=== PATIENT | male | born 1960 | race Two or more races ===

== ENCOUNTER 2018-05-04 18:07 | Inpatient (IN) | payer OTHER ==
[~2018-05-04] VITALS: Ht 175.3 cm; Wt 123.0 kg
[2018-05-04] MEDS ORDERED: acetaminophen 325mg tablet PO ONE (18:30)
[2018-05-04 19:19] LABS: BASOPHILS # (AUTO) 0.1 X10'3 (0-0.2); BASOPHILS % (AUTO) 0.4 % (0-1); EOSINOPHILS # (AUTO) 0.1 X10'3 (0-0.9); EOSINOPHILS % (AUTO) 0.9 % (0-6); HEMATOCRIT 41.6 % (42.0-52.0); HEMOGLOBIN 14.1 g/dl (14.0-17.9); LYMPHOCYTES # (AUTO) 1.4 X10'3 (1.1-4.8); LYMPHOCYTES % (AUTO) 11.4 % (21-51); MEAN CORPUSCULAR HEMOGLOBIN 30.3 PG (27.0-31.0); MEAN CORPUSCULAR HGB CONC 33.8 % (33.0-36.5); MEAN CORPUSCULAR VOLUME 89.4 FL (78-98); MONOCYTES # (AUTO) 0.8 X10'3 (0-0.9); MONOCYTES % (AUTO) 6.8 % (2-12); NEUTROPHILS # (AUTO) 9.6 X10'3 (1.8-7.7); NEUTROPHILS % (AUTO) 80.5 % (42-75); PLATELET COUNT 162 X10'3 (140-440); RED BLOOD COUNT 4.65 X10'6 (4.70-6.10); RED CELL DISTRIBUTION WIDTH 13.4 % (11.5-14.5)
[2018-05-04 19:33] LABS: PARTIAL THROMBOPLASTIN TIME 26 SECONDS (22-32); PROTHROMBIN TIME 10.5 SECONDS (9.0-12.0)
[2018-05-04 19:36] LABS: ALANINE AMINOTRANSFERASE 57 U/L (12-78); ALBUMIN 2.9 G/DL (3.4-5.0); ALBUMIN/GLOBULIN RATIO 0.5 (1.1-1.5); ALKALINE PHOSPHATASE 120 IU/L (46-116); ANION GAP 9 (8-16); ASPARTATE AMINO TRANSFERASE 42 U/L (10-37); BILIRUBIN,TOTAL 0.6 MG/DL (0.1-1.0); BLOOD UREA NITROGEN 15 MG/DL (7-18); CALCIUM 8.5 MG/DL (8.5-10.1); CHLORIDE 102 MMOL/L (99-107); CREATININE 1.07 MG/DL (0.60-1.10); GLUCOSE 265 MG/DL (70-104); POTASSIUM 3.7 MMOL/L (3.5-5.1); SODIUM 137 MMOL/L (135-145); TOTAL CARBON DIOXIDE 25.6 MMOL/L (24-32); TOTAL PROTEIN 8.3 G/DL (6.4-8.2); eGFR 71 ML/MIN
[2018-05-04] MEDS ORDERED: DOCU-20 PO (20:20)
[2018-05-04] MEDS ORDERED: ASPI81TA52 PO (20:20)
[2018-05-04] MEDS ORDERED: METF500T PO (20:20)
[2018-05-04] MEDS ORDERED: HUM7525 SQ (20:20)
[2018-05-04] MEDS ORDERED: SIMV20TA5 PO (20:20)
[2018-05-04] MEDS ORDERED: MULT-38 PO (20:20)
[2018-05-04] MEDS ORDERED: LISI-600 PO (20:20)
[2018-05-04] MEDS ORDERED: INSU100V9 SQ (20:20)
[2018-05-04 20:27] LABS: CLARITY,URINE CLEAR (Clear); COLOR,URINE YELLOW (Yellow); GLUCOSE, URINE 500 mg/dl (Neg); KETONES,URINE TRACE mg/dl (Neg); LEUKOCYTE ESTERASE ,URINE NEGATIVE (Neg); NITRITES, URINE NEGATIVE (Neg); OCCULT BLOOD,URINE LARGE (Neg); PROTEIN,URINE 30 mg/dl (Neg)
[2018-05-04 20:45] LABS: UA COLLECTION TYPE CLN CATCH MIDSTREAM
[2018-05-04 20:49] LABS: BACTERIA,URINE FEW /HPF (Neg); MUCUS STRANDS MODERATE /LPF (Neg); RBC,URINE 50-100 /HPF (0-2); SQUAMOUS EPITHELIAL CELL,UR FEW /LPF (FEW); WBC,URINE 0-4 /HPF (0-4)
[2018-05-04] MEDS ORDERED: TETanus/Pertussis (Acell)/Diphther VAC/PF (Tdap-Adult) 0.5ml syringe IM ONE (23:50)
[2018-05-04] MEDS ORDERED: clindamycin 600mg/D5W 50ml 50 ML IV ONE (23:50)
[2018-05-05] MEDS ORDERED: metoclopramide 5 mg/ml inj IV PRN (00:50)
[2018-05-05] MEDS ORDERED: dextrose 50%-water 50ml dispensing syringe IV PRN ×2 (00:50)
[2018-05-05] MEDS ORDERED: acetaminophen 325mg tablet PO PRN (00:50)
[2018-05-05] MEDS ORDERED: glucagon, human recombinant 1mg kit SUBCUT PRN (00:50)
[2018-05-05] MEDS ORDERED: mag hydrox/Alum hydrox/simeth 30ml oral suspension PO PRN (00:50)
[2018-05-05] MEDS ORDERED: bisacodyl 10mg suppository rectal RC PRN (00:50)
[2018-05-05] MEDS ORDERED: acetaminophen 650mg rectal suppository RC PRN (00:50)
[2018-05-05] MEDS ORDERED: HYDROmorphone 1 mg/ml syringe IV PRN ×2 (00:50)
[2018-05-05] MEDS ORDERED: dextrose ORAL solution 15 GM/59 ML bottle PO PRN ×2 (00:50)
[2018-05-05] MEDS ORDERED: diphenhydrAMINE 25mg capsule PO PRN (00:50)
[2018-05-05] MEDS ORDERED: diphenhydrAMINE 50 mg/ml inj IV PRN (00:50)
[2018-05-05] MEDS ORDERED: MESSAGE TO PHARMACY PO ONE (00:50)
[2018-05-05] MEDS ORDERED: magnesium hydroxide 30ml (MOM) UD suspension PO PRN (00:50)
[2018-05-05] MEDS ORDERED: ondansetron/PF 4mg/2ml inj IV PRN (00:50)
[2018-05-05] MEDS ORDERED: morphine 2 MG/ML inj. syringe IV PRN ×2 (00:50)
[2018-05-05] MEDS ORDERED: vancomycin/NS 1 GM ADD-VANTAGE 250 ML IV ONE (01:06)
[2018-05-05 01:34] LABS: HEMOGLOBIN A1C 7.7 % (4.5-6.2)
[2018-05-05 01:41] LABS: MAGNESIUM 1.9 MG/DL (1.5-2.4); PHOSPHORUS 2.7 MG/DL (2.3-4.5)
[2018-05-05] MEDS: normal saline 1000ml 1,000 ML IV SCH (01:51)
[2018-05-05] MEDS: docusate sod 100mg capsule PO SCH ×2 (07:42→20:26)
[2018-05-05] MEDS: aspirin 81mg tablet.DR PO SCH (07:43)
[2018-05-05] MEDS: famotidine 20mg tablet PO SCH ×2 (07:43→20:26)
[2018-05-05] MEDS: lisinopril 20mg tablet PO SCH (07:43)
[2018-05-05] MEDS: heparin, porcine 5000 units/ml vial SQ SCH ×2 (07:47→20:30)
[2018-05-05] MEDS: piperacillin/tazo 4.5gm/100ml 100 ML IV SCH ×2 (07:50→16:44)
[2018-05-05] MEDS ORDERED: INSULIN GLARGINE SQ SCH (08:00)
[2018-05-05] MEDS: insulin Lispro (HumaLOG) vial - multi-dose SQ SCH ×2 (09:21→19:24)
[2018-05-05 11:00] VITALS: BP 107/88
[2018-05-05 18:00] VITALS: BP 121/68
[2018-05-05] MEDS: lactobacillus rhamnosus 10,000 MMU CELLS/CAPSULE PO SCH (20:26)
[2018-05-05] MEDS: atorvastatin 10mg tablet PO SCH (20:26)
[2018-05-05] MEDS ORDERED: temazepam 15mg capsule PO PRN (21:00)
[2018-05-05] MEDS: insulin glargine (Lantus) pen - multi-dose SQ SCH (21:12)
[2018-05-05 22:00] VITALS: BP 137/73
[2018-05-06] MEDS: piperacillin/tazo 4.5gm/100ml 100 ML IV SCH ×3 (00:20→16:20)
[2018-05-06 02:00] VITALS: BP 153/69
[2018-05-06 04:16] LABS: BASOPHILS % (AUTO) 0.4 % (0-1); EOSINOPHILS # (AUTO) 0.2 X10'3 (0-0.9); EOSINOPHILS % (AUTO) 2.3 % (0-6); HEMATOCRIT 41.5 % (42.0-52.0); HEMOGLOBIN 14.2 g/dl (14.0-17.9); LYMPHOCYTES # (AUTO) 1.7 X10'3 (1.1-4.8); LYMPHOCYTES % (AUTO) 20.6 % (21-51); MEAN CORPUSCULAR HGB CONC 34.2 % (33.0-36.5); MEAN CORPUSCULAR VOLUME 90.5 FL (78-98); MEAN PLATELET VOLUME 11.1 FL (7.4-10.4); MONOCYTES # (AUTO) 0.7 X10'3 (0-0.9); MONOCYTES % (AUTO) 8.1 % (2-12); NEUTROPHILS # (AUTO) 5.5 X10'3 (1.8-7.7); NEUTROPHILS % (AUTO) 68.6 % (42-75); PLATELET COUNT 169 X10'3 (140-440); RED BLOOD COUNT 4.59 X10'6 (4.70-6.10); RED CELL DISTRIBUTION WIDTH 13.3 % (11.5-14.5); WHITE BLOOD COUNT 8.1 X10'3 (4.5-11.0)
[2018-05-06 04:39] LABS: ALANINE AMINOTRANSFERASE 53 U/L (12-78); ALBUMIN 2.5 G/DL (3.4-5.0); ALBUMIN/GLOBULIN RATIO 0.5 (1.1-1.5); ALKALINE PHOSPHATASE 102 IU/L (46-116); ANION GAP 8 (8-16); ASPARTATE AMINO TRANSFERASE 38 U/L (10-37); BILIRUBIN,TOTAL 0.7 MG/DL (0.1-1.0); BLOOD UREA NITROGEN 12 MG/DL (7-18); CALCIUM 8.2 MG/DL (8.5-10.1); CHLORIDE 105 MMOL/L (99-107); CHOL/HDL RATIO 6.9 (0.00-4.99); CHOLESTEROL 132 MG/DL (0-200); CREATININE 1.09 MG/DL (0.60-1.10); GLUCOSE 275 MG/DL (70-104); HDL CHOLESTEROL 19 MG/DL (35-60); LDL CHOLESTEROL 91 MG/DL (50-100); POTASSIUM 4.3 MMOL/L (3.5-5.1); SODIUM 139 MMOL/L (135-145); TOTAL CARBON DIOXIDE 25.8 MMOL/L (24-32); TOTAL PROTEIN 7.7 G/DL (6.4-8.2); TRIGLYCERIDES 149 MG/DL (20-135); eGFR 70 ML/MIN
[2018-05-06 06:00] VITALS: BP 135/78
[2018-05-06] MEDS: lisinopril 20mg tablet PO SCH (08:41)
[2018-05-06] MEDS: lactobacillus rhamnosus 10,000 MMU CELLS/CAPSULE PO SCH ×2 (08:41→20:56)
[2018-05-06] MEDS: aspirin 81mg tablet.DR PO SCH (08:41)
[2018-05-06] MEDS: famotidine 20mg tablet PO SCH ×2 (08:41→20:57)
[2018-05-06] MEDS: docusate sod 100mg capsule PO SCH ×2 (08:41→20:56)
[2018-05-06] MEDS: heparin, porcine 5000 units/ml vial SQ SCH ×2 (08:43→20:57)
[2018-05-06] MEDS: insulin Lispro (HumaLOG) vial - multi-dose SQ SCH ×3 (08:56→18:46)
[2018-05-06] MEDS ORDERED: VANCOMYCIN LEVEL IV ONE (09:30)
[2018-05-06 11:25] VITALS: BP 127/79
[2018-05-06 15:00] VITALS: BP 128/69
[2018-05-06] MEDS: vancomycin inj 1,250 MG in normal saline 250ml IV soln 250 ML IV SCH (17:07)
[2018-05-06] MEDS: acetaminophen 325mg tablet PO PRN (18:41)
[2018-05-06 19:00] VITALS: BP 140/70
[2018-05-06] MEDS: atorvastatin 10mg tablet PO SCH (20:57)
[2018-05-06] MEDS: insulin glargine (Lantus) pen - multi-dose SQ SCH (21:28)
[2018-05-06 23:00] VITALS: BP 132/70
[2018-05-07] MEDS: vancomycin inj 1,250 MG in normal saline 250ml IV soln 250 ML IV SCH ×5 (00:10→21:30)
[2018-05-07] MEDS: normal saline 1000ml 1,000 ML IV SCH (00:46)
[2018-05-07] MEDS: piperacillin/tazo 4.5gm/100ml 100 ML IV SCH ×4 (02:36→23:25)
[2018-05-07 03:00] VITALS: BP 106/60
[2018-05-07 06:00] VITALS: BP 129/72
[2018-05-07] MEDS: acetaminophen 325mg tablet PO PRN (06:02)
[2018-05-07 06:59] LABS: BASOPHILS % (AUTO) 0.4 % (0-1); EOSINOPHILS # (AUTO) 0.2 X10'3 (0-0.9); EOSINOPHILS % (AUTO) 2.3 % (0-6); HEMATOCRIT 38.1 % (42.0-52.0); LYMPHOCYTES # (AUTO) 1.7 X10'3 (1.1-4.8); MEAN CORPUSCULAR HEMOGLOBIN 30.8 PG (27.0-31.0); MEAN CORPUSCULAR HGB CONC 34.2 % (33.0-36.5); MEAN CORPUSCULAR VOLUME 90.1 FL (78-98); MEAN PLATELET VOLUME 10.9 FL (7.4-10.4); MONOCYTES # (AUTO) 0.7 X10'3 (0-0.9); MONOCYTES % (AUTO) 7.5 % (2-12); NEUTROPHILS # (AUTO) 6.4 X10'3 (1.8-7.7); NEUTROPHILS % (AUTO) 70.8 % (42-75); PLATELET COUNT 177 X10'3 (140-440); RED BLOOD COUNT 4.23 X10'6 (4.70-6.10); RED CELL DISTRIBUTION WIDTH 13.7 % (11.5-14.5); WHITE BLOOD COUNT 9.1 X10'3 (4.5-11.0)
[2018-05-07 07:17] LABS: ALANINE AMINOTRANSFERASE 49 U/L (12-78); ALBUMIN 2.3 G/DL (3.4-5.0); ALBUMIN/GLOBULIN RATIO 0.5 (1.1-1.5); ALKALINE PHOSPHATASE 104 IU/L (46-116); ANION GAP 9 (8-16); ASPARTATE AMINO TRANSFERASE 37 U/L (10-37); BILIRUBIN,TOTAL 0.6 MG/DL (0.1-1.0); BLOOD UREA NITROGEN 10 MG/DL (7-18); BUN/CREATININE RATIO 9.8 (5.4-32.0); CALCIUM 8.1 MG/DL (8.5-10.1); CHLORIDE 105 MMOL/L (99-107); CREATININE 1.02 MG/DL (0.60-1.10); GLUCOSE 232 MG/DL (70-104); POTASSIUM 4.1 MMOL/L (3.5-5.1); SODIUM 138 MMOL/L (135-145); TOTAL CARBON DIOXIDE 24.2 MMOL/L (24-32); TOTAL PROTEIN 7.3 G/DL (6.4-8.2); eGFR 76 ML/MIN
[2018-05-07 08:08] LABS: TOTAL CELLS COUNTED 100
[2018-05-07 08:09] LABS: LARGE PLATELETS FEW; PLATELET ESTIMATE NORMAL
[2018-05-07] MEDS: insulin Lispro (HumaLOG) vial - multi-dose SQ SCH ×3 (10:11→19:22)
[2018-05-07] MEDS: lisinopril 20mg tablet PO SCH (10:13)
[2018-05-07] MEDS: famotidine 20mg tablet PO SCH ×2 (10:14→19:24)
[2018-05-07] MEDS: aspirin 81mg tablet.DR PO SCH (10:14)
[2018-05-07] MEDS: docusate sod 100mg capsule PO SCH ×2 (10:14→19:24)
[2018-05-07] MEDS: HYDROcodone/acetaminophen 5mg/325mg tablet PO PRN ×2 (10:14→19:32)
[2018-05-07] MEDS: lactobacillus rhamnosus 10,000 MMU CELLS/CAPSULE PO SCH ×2 (10:14→19:24)
[2018-05-07] MEDS: heparin, porcine 5000 units/ml vial SQ SCH ×2 (10:25→19:24)
[2018-05-07] MEDS ORDERED: VANCOMYCIN LEVEL IV NR (10:30)
[2018-05-07 11:00] VITALS: BP 143/80
[2018-05-07 20:00] VITALS: BP 165/60
[2018-05-07] MEDS: atorvastatin 10mg tablet PO SCH (20:43)
[2018-05-07] MEDS: insulin glargine (Lantus) pen - multi-dose SQ SCH (20:46)
[2018-05-07 23:00] VITALS: BP 148/71
[2018-05-08] MEDS: HYDROcodone/acetaminophen 10/325mg tab PO PRN ×5 (00:27→22:14)
[2018-05-08] MEDS: vancomycin inj 1,250 MG in normal saline 250ml IV soln 250 ML IV SCH ×4 (04:46→22:14)
[2018-05-08] MEDS: normal saline 500ml IV soln 500 ML IV SCH (04:46)
[2018-05-08 06:41] LABS: ALANINE AMINOTRANSFERASE 43 U/L (12-78); ALBUMIN 2.4 G/DL (3.4-5.0); ALBUMIN/GLOBULIN RATIO 0.4 (1.1-1.5); ALKALINE PHOSPHATASE 110 IU/L (46-116); ANION GAP 12 (8-16); ASPARTATE AMINO TRANSFERASE 35 U/L (10-37); BILIRUBIN,TOTAL 0.5 MG/DL (0.1-1.0); BLOOD UREA NITROGEN 10 MG/DL (7-18); BUN/CREATININE RATIO 8.8 (5.4-32.0); CALCIUM 8.5 MG/DL (8.5-10.1); CHLORIDE 107 MMOL/L (99-107); CREATININE 1.13 MG/DL (0.60-1.10); GLUCOSE 166 MG/DL (70-104); SODIUM 143 MMOL/L (135-145); eGFR 67 ML/MIN
[2018-05-08 06:59] LABS: BASOPHILS % (AUTO) 0.4 % (0-1); EOSINOPHILS # (AUTO) 0.2 X10'3 (0-0.9); EOSINOPHILS % (AUTO) 2.3 % (0-6); HEMATOCRIT 39.9 % (42.0-52.0); HEMOGLOBIN 13.5 g/dl (14.0-17.9); LYMPHOCYTES # (AUTO) 2.4 X10'3 (1.1-4.8); LYMPHOCYTES % (AUTO) 23.8 % (21-51); MEAN CORPUSCULAR HEMOGLOBIN 30.9 PG (27.0-31.0); MEAN CORPUSCULAR HGB CONC 33.9 % (33.0-36.5); MEAN CORPUSCULAR VOLUME 91.2 FL (78-98); MEAN PLATELET VOLUME 11.4 FL (7.4-10.4); MONOCYTES # (AUTO) 0.6 X10'3 (0-0.9); MONOCYTES % (AUTO) 6.1 % (2-12); NEUTROPHILS # (AUTO) 6.8 X10'3 (1.8-7.7); NEUTROPHILS % (AUTO) 67.4 % (42-75); PLATELET COUNT 212 X10'3 (140-440); RED BLOOD COUNT 4.37 X10'6 (4.70-6.10); RED CELL DISTRIBUTION WIDTH 13.9 % (11.5-14.5)
[2018-05-08] MEDS: piperacillin/tazo 4.5gm/100ml 100 ML IV SCH ×2 (07:19→15:36)
[2018-05-08] MEDS: famotidine 20mg tablet PO SCH ×2 (07:19→19:56)
[2018-05-08] MEDS: aspirin 81mg tablet.DR PO SCH (07:19)
[2018-05-08] MEDS: lactobacillus rhamnosus 10,000 MMU CELLS/CAPSULE PO SCH ×2 (07:19→19:56)
[2018-05-08] MEDS: docusate sod 100mg capsule PO SCH ×2 (07:19→19:56)
[2018-05-08] MEDS: heparin, porcine 5000 units/ml vial SQ SCH ×2 (07:20→19:56)
[2018-05-08] MEDS: lisinopril 20mg tablet PO SCH (07:20)
[2018-05-08 07:39] VITALS: BP 130/76
[2018-05-08] MEDS: insulin Lispro (HumaLOG) vial - multi-dose SQ SCH ×3 (09:02→18:44)
[2018-05-08 12:00] VITALS: BP 116/74
[2018-05-08] MEDS: emollient combination-Eucerin 250 ML LOTION TP SCH (19:56)
[2018-05-08 20:00] VITALS: BP 143/76
[2018-05-08] MEDS: insulin glargine (Lantus) pen - multi-dose SQ SCH (21:01)
[2018-05-08] MEDS: atorvastatin 10mg tablet PO SCH (21:02)
[2018-05-09] VITALS: BP 135/71
[2018-05-09] MEDS: piperacillin/tazo 4.5gm/100ml 100 ML IV SCH ×3 (00:19→16:02)
[2018-05-09] MEDS: normal saline 500ml IV soln 500 ML IV SCH ×2 (00:19→17:19)
[2018-05-09] MEDS: HYDROcodone/acetaminophen 10/325mg tab PO PRN ×4 (01:58→20:06)
[2018-05-09] MEDS: vancomycin inj 1,250 MG in normal saline 250ml IV soln 250 ML IV SCH ×4 (05:46→22:29)
[2018-05-09 05:58] LABS: BASOPHILS % (AUTO) 0.4 % (0-1); EOSINOPHILS # (AUTO) 0.3 X10'3 (0-0.9); EOSINOPHILS % (AUTO) 2.8 % (0-6); HEMATOCRIT 39.7 % (42.0-52.0); HEMOGLOBIN 13.5 g/dl (14.0-17.9); LYMPHOCYTES # (AUTO) 2.4 X10'3 (1.1-4.8); LYMPHOCYTES % (AUTO) 24.4 % (21-51); MEAN CORPUSCULAR HGB CONC 34.1 % (33.0-36.5); MEAN CORPUSCULAR VOLUME 90.8 FL (78-98); MONOCYTES # (AUTO) 0.7 X10'3 (0-0.9); MONOCYTES % (AUTO) 7.1 % (2-12); NEUTROPHILS # (AUTO) 6.3 X10'3 (1.8-7.7); NEUTROPHILS % (AUTO) 65.3 % (42-75); PLATELET COUNT 209 X10'3 (140-440); RED BLOOD COUNT 4.37 X10'6 (4.70-6.10); RED CELL DISTRIBUTION WIDTH 13.6 % (11.5-14.5); WHITE BLOOD COUNT 9.7 X10'3 (4.5-11.0)
[2018-05-09 06:13] LABS: ALANINE AMINOTRANSFERASE 44 U/L (12-78); ALBUMIN 2.5 G/DL (3.4-5.0); ALBUMIN/GLOBULIN RATIO 0.4 (1.1-1.5); ALKALINE PHOSPHATASE 118 IU/L (46-116); ANION GAP 11 (8-16); ASPARTATE AMINO TRANSFERASE 36 U/L (10-37); BILIRUBIN,TOTAL 0.6 MG/DL (0.1-1.0); BLOOD UREA NITROGEN 10 MG/DL (7-18); BUN/CREATININE RATIO 9.8 (5.4-32.0); CALCIUM 8.4 MG/DL (8.5-10.1); CHLORIDE 105 MMOL/L (99-107); CREATININE 1.02 MG/DL (0.60-1.10); GLUCOSE 178 MG/DL (70-104); POTASSIUM 3.9 MMOL/L (3.5-5.1); SODIUM 139 MMOL/L (135-145); TOTAL CARBON DIOXIDE 23.4 MMOL/L (24-32); TOTAL PROTEIN 8.1 G/DL (6.4-8.2); eGFR 76 ML/MIN
[2018-05-09 06:28] LABS: LARGE PLATELETS FEW; PLATELET ESTIMATE NORMAL
[2018-05-09] MEDS: lactobacillus rhamnosus 10,000 MMU CELLS/CAPSULE PO SCH ×2 (07:21→20:05)
[2018-05-09] MEDS: docusate sod 100mg capsule PO SCH ×2 (07:21→20:05)
[2018-05-09] MEDS: aspirin 81mg tablet.DR PO SCH (07:21)
[2018-05-09] MEDS: lisinopril 20mg tablet PO SCH (07:21)
[2018-05-09] MEDS: famotidine 20mg tablet PO SCH ×2 (07:21→20:06)
[2018-05-09] MEDS: heparin, porcine 5000 units/ml vial SQ SCH ×2 (07:22→20:07)
[2018-05-09] MEDS: emollient combination-Eucerin 250 ML LOTION TP SCH ×2 (07:24→20:08)
[2018-05-09 07:34] VITALS: BP 150/85
[2018-05-09] MEDS: insulin Lispro (HumaLOG) vial - multi-dose SQ SCH ×3 (09:15→19:07)
[2018-05-09 11:29] VITALS: BP 158/71
[2018-05-09 20:00] VITALS: BP 151/85
[2018-05-09] MEDS: atorvastatin 10mg tablet PO SCH (20:06)
[2018-05-09] MEDS: insulin glargine (Lantus) pen - multi-dose SQ SCH (21:13)
[2018-05-10] VITALS: BP 149/75
[2018-05-10] MEDS: piperacillin/tazo 4.5gm/100ml 100 ML IV SCH ×2 (00:15→07:36)
[2018-05-10] MEDS: HYDROcodone/acetaminophen 10/325mg tab PO PRN ×6 (02:42→23:10)
[2018-05-10] MEDS: vancomycin inj 1,250 MG in normal saline 250ml IV soln 250 ML IV SCH ×3 (05:02→16:38)
[2018-05-10 05:46] LABS: BASOPHILS % (AUTO) 0.3 % (0-1); EOSINOPHILS # (AUTO) 0.3 X10'3 (0-0.9); EOSINOPHILS % (AUTO) 2.8 % (0-6); HEMATOCRIT 39.2 % (42.0-52.0); HEMOGLOBIN 13.2 g/dl (14.0-17.9); LYMPHOCYTES # (AUTO) 1.9 X10'3 (1.1-4.8); LYMPHOCYTES % (AUTO) 20.2 % (21-51); MEAN CORPUSCULAR HEMOGLOBIN 30.8 PG (27.0-31.0); MEAN CORPUSCULAR HGB CONC 33.7 % (33.0-36.5); MEAN CORPUSCULAR VOLUME 91.3 FL (78-98); MONOCYTES # (AUTO) 0.7 X10'3 (0-0.9); MONOCYTES % (AUTO) 7.7 % (2-12); NEUTROPHILS # (AUTO) 6.4 X10'3 (1.8-7.7); PLATELET COUNT 212 X10'3 (140-440); RED CELL DISTRIBUTION WIDTH 13.7 % (11.5-14.5); WHITE BLOOD COUNT 9.3 X10'3 (4.5-11.0)
[2018-05-10 06:16] LABS: ALANINE AMINOTRANSFERASE 38 U/L (12-78); ALBUMIN 2.4 G/DL (3.4-5.0); ALBUMIN/GLOBULIN RATIO 0.4 (1.1-1.5); ALKALINE PHOSPHATASE 118 IU/L (46-116); ANION GAP 10 (8-16); ASPARTATE AMINO TRANSFERASE 34 U/L (10-37); BILIRUBIN,TOTAL 0.6 MG/DL (0.1-1.0); BLOOD UREA NITROGEN 10 MG/DL (7-18); BUN/CREATININE RATIO 10.4 (5.4-32.0); CALCIUM 8.6 MG/DL (8.5-10.1); CHLORIDE 106 MMOL/L (99-107); CREATININE 0.96 MG/DL (0.60-1.10); GLUCOSE 195 MG/DL (70-104); POTASSIUM 4.3 MMOL/L (3.5-5.1); SODIUM 142 MMOL/L (135-145); TOTAL CARBON DIOXIDE 25.7 MMOL/L (24-32); eGFR 81 ML/MIN
[2018-05-10 06:30] LABS: LARGE PLATELETS FEW; PLATELET ESTIMATE NORMAL
[2018-05-10] MEDS: docusate sod 100mg capsule PO SCH ×2 (07:36→20:30)
[2018-05-10] MEDS: lisinopril 20mg tablet PO SCH (07:36)
[2018-05-10] MEDS: aspirin 81mg tablet.DR PO SCH (07:37)
[2018-05-10] MEDS: lactobacillus rhamnosus 10,000 MMU CELLS/CAPSULE PO SCH ×2 (07:37→20:30)
[2018-05-10] MEDS: famotidine 20mg tablet PO SCH ×2 (07:37→20:30)
[2018-05-10] MEDS: heparin, porcine 5000 units/ml vial SQ SCH ×2 (07:39→20:30)
[2018-05-10] MEDS: emollient combination-Eucerin 250 ML LOTION TP SCH ×2 (08:29→20:31)
[2018-05-10] MEDS: insulin Lispro (HumaLOG) vial - multi-dose SQ SCH ×3 (08:35→18:58)
[2018-05-10 09:10] VITALS: BP 111/55
[2018-05-10] MEDS: normal saline 500ml IV soln 500 ML IV SCH (11:14)
[2018-05-10 12:00] VITALS: BP 148/73
[2018-05-10] MEDS ORDERED: CLIN150C2 PO (17:04)
[2018-05-10] MEDS ORDERED: INSU100V9 SQ (17:07)
[2018-05-10 19:00] VITALS: BP 130/56
[2018-05-10] MEDS: atorvastatin 10mg tablet PO SCH (20:29)
[2018-05-10] MEDS: clindamycin 300mg/D5W 50mL 50 ML IV SCH (20:30)
[2018-05-10] MEDS: insulin glargine (Lantus) pen - multi-dose SQ SCH (21:49)
[2018-05-11] VITALS: BP 133/73
[2018-05-11] MEDS: clindamycin 300mg/D5W 50mL 50 ML IV SCH ×2 (02:11→07:51)
[2018-05-11] MEDS: HYDROcodone/acetaminophen 10/325mg tab PO PRN ×2 (03:26→07:50)
[2018-05-11 07:01] VITALS: BP 139/85
[2018-05-11 07:02] VITALS: BP 139/85
[2018-05-11] MEDS: lisinopril 20mg tablet PO SCH (07:48)
[2018-05-11] MEDS: docusate sod 100mg capsule PO SCH (07:49)
[2018-05-11] MEDS: famotidine 20mg tablet PO SCH (07:49)
[2018-05-11] MEDS: lactobacillus rhamnosus 10,000 MMU CELLS/CAPSULE PO SCH (07:49)
[2018-05-11] MEDS: aspirin 81mg tablet.DR PO SCH (07:50)
[2018-05-11] MEDS: heparin, porcine 5000 units/ml vial SQ SCH (07:51)
[2018-05-11] MEDS: emollient combination-Eucerin 250 ML LOTION TP SCH (07:52)
[2018-05-11] MEDS: insulin Lispro (HumaLOG) vial - multi-dose SQ SCH (09:24)
[2018-05-11 11:23] VITALS: BP_SYST 113; BP_SYST 147; BP_DIAS 64; BP_DIAS 80
[2018-05-11] MEDS ORDERED: INSU100V9 SQ (12:57)
== END 2018-05-11 12:30 | disposition home or self-care (01) | DRG 872 ==
LOC: ER 18:07 → ED HOLD 05-05 00:46 → PCU 3S 05-05 13:00 → SUR 3N 05-07 14:42
PROVIDERS: ADMIT Family Medicine; ATTEND Internal Medicine
PROC: 5A09357 Assistance with Respiratory Ventilation, Less than 24 Consecutive Hours, Continuous Positive Airway Pressure (ICD-10-PCS; principal; 2018-05-07)
PROC: 5A09357 Assistance with Respiratory Ventilation, Less than 24 Consecutive Hours, Continuous Positive Airway Pressure (ICD-10-PCS; 2018-05-11)
DX: A41.9 Sepsis, unspecified organism (principal); L03.116 Cellulitis of left lower limb; E44.1 Mild protein-calorie malnutrition; Z68.41 Body mass index [BMI] 40.0-44.9, adult; E66.01 Morbid (severe) obesity due to excess calories; I87.8 Other specified disorders of veins; S90.122A Contusion of left lesser toe(s) without damage to nail, initial encounter; E86.0 Dehydration; E11.65 Type 2 diabetes mellitus with hyperglycemia; I10 Essential (primary) hypertension; K74.60 Unspecified cirrhosis of liver; B19.20 Unspecified viral hepatitis C without hepatic coma; Z79.899 Other long term (current) drug therapy; Z79.82 Long term (current) use of aspirin; Z79.4 Long term (current) use of insulin
CPT/HCPCS: 36415; 71045; 73630; 80053; 80061; 80202; 81001; 82948; 83036; 83605; 83735; 83880; 84100; 84145; 85025; 85610; 85730; 87040; 87070; 90715; 93971; 96365; 99285; A6258; J1644; J1815; J2543; J3370; J3490; J7030; X5958